=== PATIENT | female | born 1990 | race Caucasian/White ===

== ENCOUNTER 2020-07-15 14:15 | Inpatient (IN) | payer SELFPAY ==
[~2020-07-15] VITALS: Ht 160 cm; Wt 47.7 kg
[2020-07-15 14:52] VITALS: BP 117/56; PULSE 64; TEMP 97.7
[2020-07-15 14:55] VITALS: BP 117/65; PULSE 99; TEMP 97.7
--- NOTE | 2020-07-15 14:56 | NUR ---
Dr Terrazas here to see patient.
--- NOTE | 2020-07-15 15:58 | NUR ---
Dr Brown here to see patient.
[2020-07-15 19:37] VITALS: BP 102/62; PULSE 80; TEMP 98.2
--- NOTE | 2020-07-15 20:50 | NUR ---
Pt. sitting up in bed at this time. Pt. is A&OX3, assessment complete. INT to lt. ac patent. Pt. denies pain or other needs, call light within reach.
[2020-07-15 23:43] VITALS: BP 107/57; PULSE 64; TEMP 98.2
[2020-07-16 04:00] VITALS: BP 114/53; PULSE 69; TEMP 97.9
[2020-07-16 07:08] LABS: HEMATOCRIT 40.1 % (37.0-47.0); HEMOGLOBIN 13.1 g/dl (12.5-16.0); MEAN CELL VOLUME 92 fl (80.0-100.0); MEAN CORPUSCULAR HEMOGLOBIN 30 pg (27.0-31.0); MEAN CORPUSCULAR HGB CONC 33 g/dl (33.0-37.0); MEAN PLATELET VOLUME 10.2 fl (7.4-10.4); PLATELET COUNT 194 K/mm3 (130-400); RED BLOOD COUNT 4.38 M/mm3 (4.10-5.30); REDCELL DISTRIBUTION WIDTH-CV 11.9 % (11.5-14.5)
--- NOTE | 2020-07-16 07:12 | NUR ---
Patient lying in bed with eyes open. Denies pain. Says that she is feeling better and is hopeful to go home today. Denies additional needs at this time.
[2020-07-16 07:34] LABS: ALBUMIN 4.1 gm/dL (3.5-5.0); BILIRUBIN,TOTAL 0.9 mg/dL (0.0-1.0); CALCIUM 9.3 mg/dL (8.4-10.2); CHOLESTEROL RISK RATIO 3.8; CREATININE, serum 0.94 (0.52-1.25); MAGNESIUM 2.3 mg/dL (1.6-2.3); POTASSIUM 4.2 mmol/L (3.4-5.0)
[2020-07-16 08:02] VITALS: BP 73/44; PULSE 82; TEMP 98.2
[2020-07-16 08:35] VITALS: BP 102/55
--- NOTE | 2020-07-16 11:41 | NUR ---
Sitting up in bed. Will have her [id number] come pick her up. Patient asks about how long, explain to give us about an hour. Patient denies pain or additional needs at this time.
[2020-07-16 11:55] VITALS: BP 123/77; PULSE 70; TEMP 98.1
--- NOTE | 2020-07-16 12:10 | NUR ---
stopped by but nothing needed at this time.
--- NOTE | 2020-07-16 12:26 | NUR ---
Review all discharge instructions with the patient. Denies questions and signs discharge paperwork. Discharge packet provided to the patient. Patient will use call light when her mother in law is here to pick her up. Denies additional needs at this time.
--- NOTE | 2020-07-16 12:53 | NUR ---
Patient calls and says that her ride is here to pick her up at the ER entrance. This nurse assists patient out to POV with all belongings.
== END 2020-07-16 12:53 | disposition home or self-care (01) | DRG 282 ==
LOC: JCC 14:15 → EDBD 14:15 → JCC 17:01
PROVIDERS: Physician Assistant; ADMIT Hospitalist
DX: I21.4 Non-ST elevation (NSTEMI) myocardial infarction (principal); Z98.51 Tubal ligation status; Z20.828 Contact with and (suspected) exposure to other viral communicable diseases
CPT/HCPCS: 99222-AI; A9284; J1650

== ENCOUNTER 2021-11-05 20:27 | Observation (INO) | payer OTHER ==
[~2021-11-05] VITALS: Ht 134.6 cm; Wt 51.5 kg
[2021-11-05] MEDS ORDERED: BENADRYL25 M2 PO (22:08)
[2021-11-05] MEDS ORDERED: PERCOCET 325 MG1 TA2 PO (22:09)
[2021-11-05] MEDS ORDERED: FLAGYL500 MG PO (22:10)
[2021-11-05 22:24] VITALS: BP 111/82; PULSE 96; TEMP 97.9
--- NOTE | 2021-11-05 22:36 | NUR ---
PT ARRIVES 2134 PER [facility]. DENIES SOA, CHEST PAIN OR DIZZY. STATES SHE HAS NEVER HAD CHEST PAIN AND THAT SHE GOT BREAST AUGMENTATION 9 WEEKS AGO AND DESCIBES MORE STRETCHING AND PULLING ON SIDE OF BREAST. GOT BROUGHT TO ER BECAUSE STATES SHE TOOK 2 PERCOCET AND 2 BENEDYL SHE JUST WANTED TO SLEEP AND THEY COULD NOT WAKE HER. SHE HAD ALSO MADE A COMMENT TO HER SPOUSE OVERSEAS THAT HE WOULD BE BETTER OFF WITHOUT HER BUT HAS NO INTENTION OF SUICIDE TODAY OR EVEN THAT DAY. ADMITS TO METH USE DUE TO STRESS IN HER LIFE AND WAS TOLD IT WILL MAKE HER "HAPPY" BUT REGRETS THAT DECISION. HAD A STRESS TEST AND F/U W CARDS 11/09. POC DISCUSSED. COMES W NO IV, WILL START. CALL LIGHT WI REACH.
[2021-11-05 23:26] LABS: MAGNESIUM 2.2 mg/dL (1.6-2.6)
[2021-11-05 23:36] LABS: TROPONIN-I 0.167 ng/mL (0.00-0.033)
--- NOTE | 2021-11-05 23:37 | NUR ---
REPORT TROP OF 0.167 TO PAU JAUREGUI, NO NEW ORDER. PT CONT TO DENY CHEST PAIN. IV STARTED TO RT AC WITHOUT INCIDENT.
[2021-11-06 00:07] VITALS: BP 101/65; PULSE 105; TEMP 98.5
[2021-11-06 04:46] VITALS: BP 92/55; PULSE 94; TEMP 98.2
--- NOTE | 2021-11-06 05:43 | NUR ---
RESTED THROUGH THE NIGHT WITHOUT INCIDENT. HAS BEEN NPO FOR POSSIBLE HEART CATH.
[2021-11-06 06:11] LABS: BASO % 0.5 % (0.0-2.0); EOS # 0.1 K/mm3 (0.0-0.7); EOS % 0.8 % (0.0-4.0); GRAN # 3.2 K/mm3 (1.4-6.5); GRAN % 50.4 % (42.2-75.2); HEMATOCRIT 41.6 % (37.0-47.0); LYMPH # 2.3 K/mm3 (1.2-3.4); LYMPH % 35.5 % (20.0-51.0); MEAN CELL VOLUME 86 fl (80.0-100.0); MEAN CORPUSCULAR HEMOGLOBIN 29 pg (27-31); MEAN CORPUSCULAR HGB CONC 34 g/dl (33.0-37.0); MEAN PLATELET VOLUME 10.2 fl (7.4-10.4); MONO # 0.8 K/mm3 (0.1-0.6); MONO % 12.5 % (1.7-9.3); PLATELET COUNT 266 K/mm3 (130-400); RED BLOOD COUNT 4.82 M/mm3 (4.10-5.30); REDCELL DISTRIBUTION WIDTH-CV 12.5 % (11.5-14.5)
[2021-11-06 06:25] LABS: CALCIUM 9.5 mg/dL (8.4-10.2); CREATININE, serum 1.08 mg/dL (0.57-1.11); POTASSIUM 4.3 mmol/L (3.5-4.5)
[2021-11-06 06:35] LABS: TROPONIN-I 0.122 ng/mL (0.00-0.033)
[2021-11-06 07:52] VITALS: BP 119/79; PULSE 95; TEMP 98.4
--- NOTE | 2021-11-06 09:17 | NUR ---
Pt assessment complete. Pt laying in bed upon entry, she is A/Ox4. Her breathing is even and unlabored on RA. Pt denies SOB. Denies pain at this time. Denies any N/V. POC discussed with patient who verbalizes understanding. Has no needs at this time. Call light within reach.
[2021-11-06 11:18] VITALS: BP 85/49; PULSE 107; TEMP 97.6
--- NOTE | 2021-11-06 13:14 | NUR ---
building maintenance worker met with patient to discuss discharge plan. Patient currently lives at home in [place]. Patient reports to being fully independent with his ADL's and does not utilize any DME to assist with mobility. Patient has no home oxygen needs. Patient utilizes [facility] for PCP care and gets her medications through [facility] as well. Patient does not have a DPOA-HC established but is legally to Dm ([phone]), however does state that they are in the middle of getting a divorce. Patient reports that she has 4 children at home. She reports that the children have been in the care of her father in law Jt for 3 weeks " because i knew i was on the verge of having a mental breakdown". 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 I'm under a lot of stress". 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 I encouraged the patient to reach out to a mental health provider as well as her HR department letting her know that i was unaware of the laws in [place]. Patient is provided a list of mental health resources for the [place] area as well as the drug and alcohol resource guide. Patient expreses frustration with not being heard by her physicians as well. She reports to being diagnosed with "heart problems" four years ago. States that "the docors are saying it because of the drug use and i have only used meth once. It's like i'm starting at square one again because no one believes me".
--- NOTE | 2021-11-06 15:30 | NUR ---
Pt stating she does not want to stay for her heart catheterization, Dr. Greer and Dr. Freedman notified. Discussed leaving AMA with patient who is agreeable and still wishes to leave. IV to RFA dc'd catheter tip intact, paperwork signed by patient and she walked out of facility with staff member at this time.
--- NOTE | 2021-11-07 09:23 | NUR ---
DCF worker Basil Moy contacted me stating that he was already working on an open case for this patient. I informed Basil that the patient left AMA yesterday afternoon.
== END 2021-11-06 15:30 | disposition left against medical advice (07) ==
LOC: MEDICAL 20:27
PROVIDERS: Student in an Organized Health Care Education/Training Program; ADMIT Internal Medicine
DX: I21.4 Non-ST elevation (NSTEMI) myocardial infarction (principal); R45.851 Suicidal ideations; E87.6 Hypokalemia; N76.0 Acute vaginitis; F15.10 Other stimulant abuse, uncomplicated; F41.9 Anxiety disorder, unspecified
CPT/HCPCS: 99232-AI; G0378; J7030